=== PATIENT | male | born 1935 | race Caucasian/White ===

== ENCOUNTER 2019-03-21 06:58 | Inpatient (IN) | payer MEDICARE | END 2019-03-24 18:00 | LOC: DAHIP 06:58 → 4AH 13:40 | PROC: 0SRC0J9 Replacement of Right Knee Joint with Synthetic Substitute, Cemented, Open Approach (ICD-10-PCS; principal; 2019-03-21 10:11) | PROC: 0TJB8ZZ Inspection of Bladder, Via Natural or Artificial Opening Endoscopic (ICD-10-PCS; 2019-03-21 10:11) | DX: M17.11 Unilateral primary osteoarthritis, right knee (principal); Z96.651 Presence of right artificial knee joint; N40.1 Benign prostatic hyperplasia with lower urinary tract symptoms; R33.8 Other retention of urine ==

== ENCOUNTER 2019-04-30 18:49 | Inpatient (IN) | payer MEDICARE ==
[~2019-04-30] VITALS: Ht 175.3 cm; Wt 83.2 kg
[~2019-04-30 18:49] MED LIST: ALFU10 PO; ALFU10TA18 PO; APIX5TAB PO; FINA5TAB41 PO; HYDR-4457 PO; METO50TA18 PO; PANT40TA25 PO
[2019-04-30 19:04] LABS: BASOPHILS % (AUTO) 0.7 % (0.0-5.0); EOSINOPHILS % (AUTO) 0.9 % (0.0-8.0); HEMATOCRIT 42.6 % (42-54); LYMPHOCYTES % (AUTO) 19.6 % (21.0-51.0); MEAN CORPUSCULAR HEMOGLOBIN 34.3 pg (27.0-33.0); MEAN CORPUSCULAR HGB CONC 33.8 g/dL (32.0-36.0); MEAN CORPUSCULAR VOLUME 101.4 fL (79-99); MONOCYTES % (AUTO) 8.3 % (3.0-13.0); NEUTROPHILS % (AUTO) 70.5 % (40.0-77.0); PLATELET COUNT (AUTO) 249 K/uL (130-400); RED BLOOD CELL COUNT(AUTO) 4.21 MIL/uL (4.50-6.20); RED CELL DISTRIBUTION WIDTH 14.5 % (11.0-15.5); WHITE BLOOD COUNT (AUTO) 8.8 K/uL (4.8-10.8)
[2019-04-30 19:21] LABS: CREATININE 1.1 mg/dL (0.5-1.5); POTASSIUM 4.4 mmol/L (3.5-5.1)
[2019-04-30 19:25] LABS: ALBUMIN 3.1 g/dL (3.5-5.0); BILIRUBIN,TOTAL 0.8 mg/dL (0.2-1.0); INR 1.03 (0.85-1.15); PARTIAL THROMBOPLASTIN TIME 26.3 SEC (26.3-35.5); PROTHROMBIN TIME 10.8 SEC (9.6-11.6); TOTAL PROTEIN, SERUM 6.7 g/dL (6.0-8.3)
[2019-04-30 19:42] LABS: B-TYPE NATRIURETIC PEPTIDE 209 pg/mL (0-100)
[2019-04-30] MEDS ORDERED: ACETAMINOPHEN 325 MG TAB PO PRN ×2 (20:45)
[2019-04-30] MEDS ORDERED: LACTULOSE 20 GM/30 ML UDCUP PO PRN (20:45)
[2019-04-30] MEDS ORDERED: MORPHINE SULFATE 2 MG/ML 1ML SYG IV PRN (20:45)
[2019-04-30] MEDS ORDERED: ONDANSETRON HCL 4 MG/2 ML VIAL IV PRN (20:45)
[2019-04-30 20:47] LABS: APPEARANCE,URINE Clear (CLEAR); BILIRUBIN,URINE Negative (NEGATIVE); COLOR,URINE Yellow (YELLOW); GLUCOSE, URINE (UA) Negative (NEGATIVE); KETONES,URINE Negative (NEGATIVE); LEUKOCYTE ESTERASE ,URINE Negative (NEGATIVE); NITRATE,URINE Negative (NEGATIVE); OCCULT BLOOD,URINE Moderate (NEGATIVE); PROTEIN,URINE Negative (NEGATIVE)
[2019-04-30 21:07] LABS: BACTERIA,URINE Few /HPF (None Seen); MUCUS,URINE Few LPF (None Seen); SQUAMOUS EPITHELIAL CELL,UR 0-2 /HPF (0-2)
[2019-04-30 22:30] VITALS: BP 164/100
[2019-04-30] MEDS: FAMOTIDINE/PF 20 MG/2 ML VIAL IV SCH (22:32)
[2019-04-30] MEDS: SODIUM CHLORIDE 0.9% 1000ML 1,000 ML IV SCH (22:32)
--- NOTE | 2019-05-01 00:17 | NUR ---
CONFUSION PATIENT BECAME CONFUSED POST MORPHINE DOSE AND PULLED OUT IV AND INCLUSION SPECIAL EDUCATOR. AJ ROCK CRUSHING MACHINE OPERATOR NOTIFIED OF PATIENT STATUS NEW ORDER GIVEN FOR PAIN CONTROL. PATIENT REORIENTED TO TIME AND WILL BE MONITORED FOR CONFUSION.
[2019-05-01 04:00] VITALS: BP 139/78
[2019-05-01 05:35] LABS: BASOPHILS % (AUTO) 0.2 % (0.0-5.0); EOSINOPHILS % (AUTO) 0.1 % (0.0-8.0); HEMATOCRIT 38.2 % (42-54); LYMPHOCYTES % (AUTO) 11.4 % (21.0-51.0); MEAN CORPUSCULAR HGB CONC 34.4 g/dL (32.0-36.0); MEAN CORPUSCULAR VOLUME 98.9 fL (79-99); MONOCYTES % (AUTO) 9.4 % (3.0-13.0); NEUTROPHILS % (AUTO) 78.9 % (40.0-77.0); PLATELET COUNT (AUTO) 224 K/uL (130-400); RED BLOOD CELL COUNT(AUTO) 3.86 MIL/uL (4.50-6.20); RED CELL DISTRIBUTION WIDTH 14.2 % (11.0-15.5); WHITE BLOOD COUNT (AUTO) 8.8 K/uL (4.8-10.8)
[2019-05-01 05:58] LABS: CREATININE 1.1 mg/dL (0.5-1.5); POTASSIUM 3.8 mmol/L (3.5-5.1)
[2019-05-01 08:00] VITALS: BP 150/86
--- NOTE | 2019-05-01 08:00 | NUR ---
RED COLORED URINE REPORTED TO Angel ABAD NP FOR DR. CHICAS THAT PATIENT URINE COLOR RED IN GAN CATHETER BAG. PATIENT INFORMED HOSPITALIST CHERRY CUTTER THAT HE HAS AN APPOINTMENT FOR A "TURP PROCEDURE PLANNED LATER THIS WEEK WITH DR. CHOI."
--- NOTE | 2019-05-01 08:30 | NUR ---
PAGED DR. CRUZ PAGEShine BRAID FOLDER AUTO PORTER DR. GRIFFIN REGARDING CONSULT. SPOKE TO [facility].
[2019-05-01] MEDS ORDERED: CEFAZOLIN SODIUM 1 GM VIAL IVP PRN (09:00)
[2019-05-01] MEDS ORDERED: ENOXAPARIN SODIUM 40 MG/0.4 ML SYRINGE SQ SCH (09:00)
[2019-05-01] MEDS: METOPROLOL TARTRATE 50 MG TAB PO SCH ×2 (09:38→20:34)
[2019-05-01] MEDS: FINASTERIDE 5 MG TABLET PO SCH (09:39)
[2019-05-01] MEDS: TAMSULOSIN HCL 0.4 MG CAP.ER.24H PO SCH (09:39)
[2019-05-01] MEDS: FAMOTIDINE/PF 20 MG/2 ML VIAL IV SCH ×2 (09:40→20:34)
[2019-05-01] MEDS: SODIUM CHLORIDE 0.9% 1000ML 1,000 ML IV SCH ×2 (09:45→20:34)
[2019-05-01 11:10] VITALS: BP 141/92
--- NOTE | 2019-05-01 12:35 | NUR ---
DR. ELIAS MITCHELL HERE TO SEE PATIENT. TOLD ME THAT PATIENT IS FOLLOWED BY DR. BRODIE PEREZ. DR. GRIFFIN ORDERED TO NOTIFY DR. PEREZ OF CONSULT AND IF DR. PEREZ WOULD BE UNABLE TO SEE PATIENT, THEN FOR NURSING STAFF TO NOTIFY DR. GRIFFIN SO MD COULD RETURN BACK TO SEE PATIENT.
--- NOTE | 2019-05-01 12:55 | NUR ---
MAYA TREJO MD REGARDING CONSULT. AWAITING CALLBACK.
--- NOTE | 2019-05-01 14:32 | NUR ---
DCP CM met with pt discussed dc plans. Pt is independent prior to admission, lives at home alone. Pt has a walker w/wheels, standard walker no wheels, cane, bedside commode. Denies any other equipments/services. Agreeable for short term placement rehab, FELIX signed for [facility]. DC plan to IRU after surgery. CM to cont to follow up. Addendum: 05/01/19 at 1434 by BRAYDON CHAVEZ LVN CM Amended: Links added.
[2019-05-01 16:00] VITALS: BP 152/94
--- NOTE | 2019-05-01 17:10 | NUR ---
DR. GRIFFIN SPOKE TO MD TO INFORM HIM THAT DR. Jannie PEREZ HAS NOT BEEN BY TO SEE THE PATIENT AND CARDIAC CLEARANCE IS NEEDED FOR PLANNED PROCEDURE TOMORROW. DR. GRIFFIN REPLIED THAT HE WOULD BE BY LATER TO SEE PATIENT, BUT FOR ME TO CONTINUE TO TRY TO GET AHOLD OF DR. PEREZ.
--- NOTE | 2019-05-01 17:18 | NUR ---
REPAGED DR. BRODIE PEREZ
--- NOTE | 2019-05-01 18:10 | NUR ---
UNABLE TO REACH DR. Jannie PEREZ/ DR. COHEN INFORMED CHARGE NURSE Cullen KERN RN THAT I HAVE NOT RECEIVED CALLBACK FROM DR. Jannie PEREZ. CANCER REGISTRY COORDINATOR ARVIND TOLD Cullen KERN RN THAT DR. COHEN IS LICENSED HOME INSPECTOR FOR DR. Jannie PEREZ. I CALLED DR. COEHN AND RECEIVED A PROMPT REPLY THAT HE DOES NOT COVER FOR DR. Jannie PEREZ AND [facility] IS COVERING FOR DR. Jannie PEREZ.
[2019-05-01 20:16] VITALS: BP 166/97
[2019-05-02 00:16] VITALS: BP 159/95
[2019-05-02] MEDS: SODIUM CHLORIDE 0.9% 1000ML 1,000 ML IV SCH ×3 (02:27→22:52)
[2019-05-02 04:12] VITALS: BP 156/90
[2019-05-02 04:58] LABS: BASOPHILS % (AUTO) 0.4 % (0.0-5.0); EOSINOPHILS % (AUTO) 1.4 % (0.0-8.0); HEMATOCRIT 38.4 % (42-54); LYMPHOCYTES % (AUTO) 10.7 % (21.0-51.0); MEAN CORPUSCULAR HEMOGLOBIN 33.8 pg (27.0-33.0); MEAN CORPUSCULAR HGB CONC 33.6 g/dL (32.0-36.0); MEAN CORPUSCULAR VOLUME 100.7 fL (79-99); MONOCYTES % (AUTO) 11.2 % (3.0-13.0); NEUTROPHILS % (AUTO) 76.3 % (40.0-77.0); PLATELET COUNT (AUTO) 181 K/uL (130-400); RED BLOOD CELL COUNT(AUTO) 3.81 MIL/uL (4.50-6.20); RED CELL DISTRIBUTION WIDTH 14.2 % (11.0-15.5); WHITE BLOOD COUNT (AUTO) 8.5 K/uL (4.8-10.8)
[2019-05-02 05:14] LABS: ALBUMIN 2.5 g/dL (3.5-5.0); BILIRUBIN,TOTAL 2.2 mg/dL (0.2-1.0); CREATININE 0.9 mg/dL (0.5-1.5); POTASSIUM 3.8 mmol/L (3.5-5.1); TOTAL PROTEIN, SERUM 5.8 g/dL (6.0-8.3)
[2019-05-02 08:01] VITALS: BP 163/94
[2019-05-02] MEDS: METOPROLOL TARTRATE 50 MG TAB PO SCH ×2 (08:28→20:03)
[2019-05-02] MEDS: TAMSULOSIN HCL 0.4 MG CAP.ER.24H PO SCH (08:28)
[2019-05-02] MEDS: FAMOTIDINE/PF 20 MG/2 ML VIAL IV SCH ×2 (08:28→20:03)
[2019-05-02] MEDS: FINASTERIDE 5 MG TABLET PO SCH (08:28)
[2019-05-02 11:18] VITALS: BP 156/89
--- NOTE | 2019-05-02 15:06 | NUR ---
CM Note: [facility] IRU CM met with pt discussed MD recommendations for short term inpatient rehab, pt agreeable FELIX signed for [facility]. Faxed order, clinicals, confirmation received. Spoke to Piedad triana/MICHELLE, aware pt pending right ORIF w/Dr Webster, will fax PT notes once available after surgery. Pt pending acceptance. MOT semi-filled pending to be completed once approved, flagged in chart. EMS filled out pending to be faxed w/current date once pt ready to DC. Primary nurse aware. CM to cont to follow up.
[2019-05-02 16:21] VITALS: BP 156/97
[2019-05-02] MEDS ORDERED: ENOXAPARIN SODIUM 40 MG/0.4 ML SYRINGE SQ SCH (18:30)
[2019-05-02 20:00] VITALS: BP 160/96
[2019-05-02] MEDS: KETOROLAC TROMETHAMINE 15MG/ML IV PRN (21:06)
[2019-05-03] VITALS (22 sets, daily range): BP systolic 120–159; BP diastolic 65–100
[2019-05-03 04:22] LABS: BASOPHILS % (AUTO) 0.6 % (0.0-5.0); EOSINOPHILS % (AUTO) 3.6 % (0.0-8.0); HEMATOCRIT 38.2 % (42-54); LYMPHOCYTES % (AUTO) 11.1 % (21.0-51.0); MEAN CORPUSCULAR HEMOGLOBIN 34.3 pg (27.0-33.0); MEAN CORPUSCULAR HGB CONC 34.1 g/dL (32.0-36.0); MEAN CORPUSCULAR VOLUME 100.5 fL (79-99); MONOCYTES % (AUTO) 13.1 % (3.0-13.0); NEUTROPHILS % (AUTO) 71.6 % (40.0-77.0); NUCLEATED RED BLOOD CELLS 0.1 % (0.0-0.19); PLATELET COUNT (AUTO) 167 K/uL (130-400); RED CELL DISTRIBUTION WIDTH 14.3 % (11.0-15.5)
[2019-05-03 04:31] LABS: POTASSIUM 3.8 mmol/L (3.5-5.1)
[2019-05-03] MEDS ORDERED: HYDRALAZINE HCL 20 MG/ML VIAL IV PRN (05:45)
[2019-05-03] MEDS: KETOROLAC TROMETHAMINE 15MG/ML IV PRN (06:43)
[2019-05-03] MEDS: SODIUM CHLORIDE 0.9% 1000ML 1,000 ML IV SCH ×3 (08:35→19:56)
[2019-05-03] MEDS: FINASTERIDE 5 MG TABLET PO SCH (09:00)
[2019-05-03] MEDS: TAMSULOSIN HCL 0.4 MG CAP.ER.24H PO SCH (09:00)
[2019-05-03] MEDS: FAMOTIDINE/PF 20 MG/2 ML VIAL IV SCH ×2 (10:25→21:02)
[2019-05-03] MEDS: METOPROLOL TARTRATE 50 MG TAB PO SCH ×2 (10:25→21:02)
--- NOTE | 2019-05-03 14:30 | NUR ---
pt sent to surgery holding area.
[2019-05-03] MEDS ORDERED: CEFAZOLIN SODIUM 1 GM VIAL ONE (15:06)
[2019-05-03] MEDS ORDERED: LIDOCAINE PF 2% 5ML ABBOJECT ONE (15:12)
[2019-05-03] MEDS ORDERED: DEXAMETHASONE SOD PHOSPHATE 10MG/ML 1ML VIAL ONE (15:12)
[2019-05-03] MEDS ORDERED: ONDANSETRON HCL 4 MG/2 ML VIAL ONE (15:13)
[2019-05-03] MEDS ORDERED: PROPOFOL 10 MG/ML 20ML VIAL IV ONE (15:13)
[2019-05-03] MEDS ORDERED: ROCURONIUM 10MG/1ML SYR 10 MG/ML ML ONE ×2 (15:13→16:06)
[2019-05-03] MEDS ORDERED: FENTANYL CITRATE PF 50 MCG/1 ML 2ML VIAL ONE ×2 (15:13→16:08)
[2019-05-03] MEDS ORDERED: MIDAZOLAM HCL 1 MG/ML 2ML VIAL ONE (15:13)
[2019-05-03] MEDS ORDERED: ROPIVACAINE 0.5% 5MG/ML 30ML IJ ONE (15:26)
[2019-05-03] MEDS ORDERED: NEOSTIGMINE 5MG/5ML SYR IV ONE (16:47)
[2019-05-03] MEDS ORDERED: GLYCOPYRROLATE 1 MG/5 ML SYRINGE ONE (16:47)
[2019-05-03] MEDS ORDERED: POTASSIUM CHLORIDE 20MEQ/100ML 100 ML IV PRN (17:15)
[2019-05-03] MEDS ORDERED: DIPHENHYDRAMINE HCL 25 MG CAPSULE PO PRN (17:15)
[2019-05-03] MEDS ORDERED: LIDOCAINE HCL-MPF 1% 2ML VIAL IV PRN (17:15)
[2019-05-03] MEDS ORDERED: POTASSIUM CHLORIDE 20 MEQ ERTAB PO PRN (17:15)
[2019-05-03] MEDS ORDERED: HYDROCODONE/ACETAMINOPHEN 5/325 MG TAB PO PRN (17:15)
[2019-05-03] MEDS ORDERED: CALCIUM CARBONATE 500 MG TABLET PO PRN (17:15)
[2019-05-03] MEDS ORDERED: FERROUS FUMARATE 324 MG TABLET PO PRN (17:15)
[2019-05-03] MEDS ORDERED: TRAMADOL HCL 50 MG TABLET PO PRN (17:15)
[2019-05-03] MEDS ORDERED: POTASSIUM CHLORIDE 10% ELIXIR 20 MEQ/15 ML UDCUP PO PRN (17:15)
[2019-05-03] MEDS ORDERED: DiphenhydrAMINE HCL 50 MG/ML VIAL IVP PRN (17:15)
[2019-05-03] MEDS ORDERED: ESMOLOL HCL 10 MG/ML 10 ML VIAL ONE (17:20)
[2019-05-03] MEDS ORDERED: METOPROLOL TARTRATE 1 MG/ML 5ML VIAL IV ONE (17:42)
--- NOTE | 2019-05-03 18:25 | NUR ---
received pt back post op; he is slightly confused oriented to person and place but not to event; he doesn't believe he could have just had surgery; he denies pain, is slightly moving his feet, blood pressure wnl, slightly taccycardiac. will cont to monitor.
[2019-05-03] MEDS ORDERED: CEFAZOLIN SODIUM 1 GM VIAL IVP SCH (19:00)
[2019-05-03] MEDS ORDERED: PHARMACY COMMUNICATION MISC SCH (19:00)
[2019-05-03] MEDS: HYDROCODONE/ACETAMINOPHEN 5/325 MG TAB PO PRN ×2 (19:19→23:47)
[2019-05-03] MEDS: APIXABAN 5 MG TABLET PO SCH (19:57)
[2019-05-03] MEDS: CEFAZOLIN SODIUM 1 GM VIAL IVP SCH (23:46)
[2019-05-04] VITALS (7 sets, daily range): BP systolic 99–156; BP diastolic 62–90
[2019-05-04] MEDS: SODIUM CHLORIDE 0.9% 1000ML 1,000 ML IV SCH ×2 (04:35→04:59)
[2019-05-04] MEDS: HYDROCODONE/ACETAMINOPHEN 5/325 MG TAB PO PRN ×3 (04:59→20:56)
[2019-05-04 05:14] LABS: BASOPHILS % (AUTO) 0.5 % (0.0-5.0); EOSINOPHILS % (AUTO) 4.5 % (0.0-8.0); HEMATOCRIT 35.1 % (42-54); LYMPHOCYTES % (AUTO) 12.5 % (21.0-51.0); MEAN CORPUSCULAR HEMOGLOBIN 33.9 pg (27.0-33.0); MEAN CORPUSCULAR HGB CONC 33.9 g/dL (32.0-36.0); MONOCYTES % (AUTO) 11.9 % (3.0-13.0); NEUTROPHILS % (AUTO) 70.6 % (40.0-77.0); PLATELET COUNT (AUTO) 197 K/uL (130-400); RED BLOOD CELL COUNT(AUTO) 3.52 MIL/uL (4.50-6.20); RED CELL DISTRIBUTION WIDTH 14.3 % (11.0-15.5); WHITE BLOOD COUNT (AUTO) 7.8 K/uL (4.8-10.8)
[2019-05-04 05:21] LABS: POTASSIUM 3.7 mmol/L (3.5-5.1)
[2019-05-04] MEDS: FAMOTIDINE/PF 20 MG/2 ML VIAL IV SCH (10:42)
[2019-05-04] MEDS: CEFAZOLIN SODIUM 1 GM VIAL IVP SCH (10:42)
[2019-05-04] MEDS: APIXABAN 5 MG TABLET PO SCH ×2 (10:44→20:39)
[2019-05-04] MEDS: FINASTERIDE 5 MG TABLET PO SCH (10:44)
[2019-05-04] MEDS: METOPROLOL TARTRATE 50 MG TAB PO SCH ×2 (10:44→20:39)
[2019-05-04] MEDS: TAMSULOSIN HCL 0.4 MG CAP.ER.24H PO SCH (10:44)
--- NOTE | 2019-05-04 15:00 | NUR ---
cm note [facility] rehab spoke to rob, pt is accepted to the rehab for tomorrow. updated dr solano. JULISSA plan for [facility] rehab tomorrow.
[2019-05-04] MEDS: FAMOTIDINE 20MG TAB 20 MG TAB PO SCH (20:39)
[2019-05-05] MEDS: HYDROCODONE/ACETAMINOPHEN 5/325 MG TAB PO PRN (03:03)
[2019-05-05 03:40] VITALS: BP 153/93
[2019-05-05 05:54] LABS: HEMATOCRIT 35.8 % (42-54); MEAN CORPUSCULAR HEMOGLOBIN 33.8 pg (27.0-33.0); MEAN CORPUSCULAR VOLUME 102.3 fL (79-99); NUCLEATED RED BLOOD CELLS 0.1 % (0.0-0.19); PLATELET COUNT (AUTO) 201 K/uL (130-400); WHITE BLOOD COUNT (AUTO) 8.3 K/uL (4.8-10.8)
[2019-05-05 07:29] VITALS: BP 151/94
[2019-05-05] MEDS: TAMSULOSIN HCL 0.4 MG CAP.ER.24H PO SCH (10:19)
[2019-05-05] MEDS: FAMOTIDINE 20MG TAB 20 MG TAB PO SCH (10:20)
[2019-05-05] MEDS: METOPROLOL TARTRATE 50 MG TAB PO SCH (10:20)
[2019-05-05] MEDS: FINASTERIDE 5 MG TABLET PO SCH (10:20)
[2019-05-05] MEDS: APIXABAN 5 MG TABLET PO SCH (10:21)
[2019-05-05 10:50] VITALS: BP 130/85
--- NOTE | 2019-05-05 11:30 | NUR ---
DISCONTINUED GAN CATHETER/DTV REMOVED 16 FR GAN CATHETER, NO RESISTANCE NOTED UPON GAN CATHETER REMOVAL. GAN CATHETER TIP INTACT. PATIENT DUE TO VOID, WILL CONTINUE TO MONITOR.
--- NOTE | 2019-05-05 13:23 | NUR ---
Patient is pending DC to Rehab this PM.Patient was transferred back to bed for Nursing to change the dressing. Addendum: 05/05/19 at 1326 by SONDRA TOSCANO, PT PT Amended: Links added.
[2019-05-05 16:14] VITALS: BP 136/86
--- NOTE | 2019-05-05 16:43 | NUR ---
[facility] CALL[facility] TO REPORT THAT PATIENT WAS READY FOR PICKUP TO BE TRANSFERRED TO [facility].
--- NOTE | 2019-05-05 16:45 | NUR ---
MEDICATION RECONCILIATION/REPORT GIVEN TO [facility] CALLED Angel BARRERA NP FOR DR. CHICAS TO REPORT PRN PAIN MEDICATIONS WHERE DISCONTINUED AND PATIENT MAY REQUIRE PAIN MEDICATIONS AT [facility]. Angel BARRERA NP REPLIED SHE WAS ON HER WAY TO EDIT MEDICATION RECONCILIATION PAPERWORK. NURSE REPORT GIV[facility] TO [facility] [phone]. UPDATED MEDICATION RECONCILIATION FAXED TO [facility] [phone]. Addendum: 05/05/19 at 2024 by LAY LOZANO RN RN NURSE HUANG OF [facility] OF DR. SHUKLA DISCHARGE ORDERS TO PERFORM DAILY DRESSING CHANGES TO RIGHT HIP INCISION, ACTIVITY WBAT WITH WALKER, AND SCHEDULED F/U APPT WITH DR. SHUKLA.
--- NOTE | 2019-05-05 17:00 | NUR ---
DRESSING CHANGE PERFORMED RIGHT HIP DRESSING CHANGE. RIGHT HIP INCISION X3, NOTED TO BE APPROXIMATED, ASYMPTOMATIC, NO DRAINAGE NOTED. CLEANSED WITH BETADINE, COVERED WITH 4X4 GAUZE AND SECURED WITH MEDIPORE TAPE. REMOVED 20G IV FROM RIGHT UPPER ARM, CATHETER TIP INTACT. EXPLAINED DISCHARGE INSTRUCTIONS TO PATIENT, THOUGH PATIENT REQUIRES REINFORCEMENT AND CAN BE FORGETFUL. PATIENT PROVIDED WITH DISCHARGE PAPERWORK AT TIME OF DISCHARGE.
--- NOTE | 2019-05-05 17:15 | NUR ---
PATIENTS DAUGHTER CALLED PATIENTS DAUGHTER, VIDAL HOOD, TO INFORM HER THAT PATIENT WOULD BE TRANSFERRED TO [facility] TODAY. EXPLAINED PLAN OF CARE, DISCHARGE PLAN/TEACHING TO PATIENTS DAUGHTER SINCE PATIENT CAN BE FORGETFUL.
--- NOTE | 2019-05-05 18:24 | NUR ---
[facility] CALLED [facility] [phone] TO FOLLOW-UP SINCE PATIENT PENDING TO BE PICKED UP. WAS TOLD THAT PATIENT "WAS NEXT ON THE LIST."
[2019-05-06] MEDS ORDERED: BISACODYL 10 MG SUPP.RECT RC PRN (17:15)
== END 2019-05-05 19:51 | DRG 481 ==
LOC: EDH 18:49 → EDHIP 20:35 → 4AH 21:46
PROVIDERS: ADMIT Hospitalist; ATTEND Hospitalist
PROC: 0QS606Z Reposition Right Upper Femur with Intramedullary Internal Fixation Device, Open Approach (ICD-10-PCS; principal; 2019-05-03 15:00)
DX: S72.141A Displaced intertrochanteric fracture of right femur, initial encounter for closed fracture (principal); E44.0 Moderate protein-calorie malnutrition; I48.20 Chronic atrial fibrillation, unspecified; Z79.01 Long term (current) use of anticoagulants; E11.9 Type 2 diabetes mellitus without complications; F02.80 Dementia in other diseases classified elsewhere, unspecified severity, without behavioral disturbance, psychotic disturbance, mood disturbance, and anxiety; J44.9 Chronic obstructive pulmonary disease, unspecified; M17.11 Unilateral primary osteoarthritis, right knee; N40.0 Benign prostatic hyperplasia without lower urinary tract symptoms; Z80.3 Family history of malignant neoplasm of breast; Z87.891 Personal history of nicotine dependence; Z96.651 Presence of right artificial knee joint; Z68.27 Body mass index [BMI] 27.0-27.9, adult; I50.9 Heart failure, unspecified; I11.0 Hypertensive heart disease with heart failure
CPT/HCPCS: 36415; 70450; 71045; 72125; 73502; 73503; 73560; 80048; 80053; 81001; 82550; 82948; 83880; 84484; 85025; 85027; 85610; 85730; 87088; 93005; 97039; 99291; G0378; J0690; J1100; J1650; J1885; J2001; J2250; J2405; J2704; J2710; J2795; J3010; J3490; J7030

== ENCOUNTER 2019-07-20 08:36 | Day surgery (SDC) | payer OTHER ==
[~2019-07-20] VITALS: Ht 182.9 cm; Wt 79.1 kg
[~2019-07-20 08:36] MED LIST changes: +ACET325T51 PO; -ALFU10 PO; -ALFU10TA18 PO; +ALFU10TA9 PO; -HYDR-4457 PO; +LOPE2TAB26 PO; +MENT120C2 TP; +METO10TA41 PO; +POTA-79 PO; +SODIUM CHLORIDE 0.9% 1000ML 1,000 ML IV ONE
[2019-07-20 09:25] VITALS: BP 158/98
[2019-07-20] MEDS ORDERED: PROPOFOL 10 MG/ML 20ML VIAL IV ONE (10:59)
== END 2019-07-20 11:00 | disposition home or self-care (01) ==
LOC: DAH 08:36 → ENDO 08:36
PROVIDERS: ATTEND Internal Medicine
DX: K21.9 Gastro-esophageal reflux disease without esophagitis (principal); R13.10 Dysphagia, unspecified; R63.4 Abnormal weight loss; K31.84 Gastroparesis; I10 Essential (primary) hypertension; I48.91 Unspecified atrial fibrillation; E78.5 Hyperlipidemia, unspecified; Z79.01 Long term (current) use of anticoagulants; Z96.659 Presence of unspecified artificial knee joint; Z98.890 Other specified postprocedural states; Z53.8 Procedure and treatment not carried out for other reasons
CPT/HCPCS: A4215; A4221; A4222; A4223; A4606; A4663; J2704; J7030

== ENCOUNTER 2019-07-27 05:40 | Day surgery (SDC) | payer OTHER ==
[~2019-07-27] VITALS: Ht 182.9 cm; Wt 80.7 kg
[~2019-07-27 05:40] MED LIST changes: -ALFU10TA9 PO; -MENT120C2 TP; -SODIUM CHLORIDE 0.9% 1000ML 1,000 ML IV ONE
[2019-07-27 07:52] VITALS: BP 142/88
[2019-07-27] MEDS ORDERED: TAMS-1 PO (08:09)
[2019-07-27] MEDS ORDERED: SODIUM CHLORIDE 0.9% 1000ML 1,000 ML IV ONE (08:19)
[2019-07-27] MEDS ORDERED: PROPOFOL 10 MG/ML 20ML VIAL IV ONE (11:08)
[2019-07-27 11:20] VITALS: BP 114/66
[2019-07-27 11:25] VITALS: BP 145/94
[2019-07-27 11:30] VITALS: BP 144/90
[2019-07-27 11:35] VITALS: BP 140/77
== END 2019-07-27 12:08 | disposition home or self-care (01) ==
LOC: ENDO 05:40 → DAH 05:40 → ENDO 12:08
PROVIDERS: ATTEND Internal Medicine Gastroenterology
DX: R13.10 Dysphagia, unspecified (principal); K22.2 Esophageal obstruction; K29.50 Unspecified chronic gastritis without bleeding; K31.84 Gastroparesis; K21.9 Gastro-esophageal reflux disease without esophagitis; I48.91 Unspecified atrial fibrillation; I10 Essential (primary) hypertension; E78.5 Hyperlipidemia, unspecified; Z96.659 Presence of unspecified artificial knee joint; Z98.890 Other specified postprocedural states; R63.4 Abnormal weight loss
CPT/HCPCS: 43239; 43248; 88305; A4215; A4221; A4222; A4223; A4606; A4620; A4663; J2704; J7030